=== PATIENT | female | born 1980 | race Caucasian/White ===

== ENCOUNTER 2017-07-20 16:26 | Emergency (ER) | payer OTHER ==
[~2017-07-20] VITALS: Ht 160 cm; Wt 121.1 kg
[~2017-07-20 16:26] MED LIST: LOPE1LIQ7 PO; NAPR220T70 PO
[2017-07-20] MEDS ORDERED: NAPR375T3 PO (16:53)
--- NOTE | 2017-07-20 16:54 | PHYS DOC ---
Past History Past Medical History: Other Past Surgical History: , Other Alcohol Use: None Drug Use: None Adult General Chief Complaint Chief Complaint: LOWER EXT PAIN HPI HPI Patient is a 57-year-old female who was standing for a long time yesterday and developed some a ankle swelling bilaterally. She was told by an EMS friend, to get checked out and make sure that she didn't have any vascular compromise. Patient has not complaints Review of Systems Review of Systems Constitutional: Denies fever or chills [] HENT: Denies nasal congestion or sore throat [] Respiratory: Denies cough or shortness of breath [] Cardiovascular: No chest pain GI: Denies abdominal pain, Musculoskeletal: Ankle pain bilateral and ankle swelling Integument: Denies rash or skin lesions [] Neurologic: Denies headache, focal weakness or sensory changes [] Allergies Allergies Allergies Coded Allergies Type Severity Reaction Last Updated Verified clindamycin Allergy Intermediate 09/16/14 Yes poison tricia extract Allergy Intermediate 09/16/14 Yes Latex, Natural Rubber Allergy Mild 09/16/14 Yes aspirin Allergy Mild 09/16/14 Yes cephalexin Allergy Mild 09/16/14 Yes coconut oil Allergy Mild 09/16/14 Yes venlafaxine Allergy Unknown 07/20/17 Yes Uncoded Allergies Type Severity Reaction Last Updated Verified narcotics Adverse Reaction Unknown 07/20/17 Physical Exam Physical Exam Constitutional: Well developed, well nourished, no acute distress, non-toxic appearance. [] HENT: Normocephalic, atraumatic, Eyes: EOMI, conjunctiva normal, no discharge. [] Neck: Normal range of motion, trachea midline, no JVD Cardiovascular:Heart rate regular rhythm, no murmur, normal perfusion, capillary refill less than 2 seconds Lungs & Thorax: Bilateral breath sounds clear to auscultation, no tachypnea Abdomen: No distention Skin: Warm, dry, no erythema, no rash. [] Back: Number range of motion Extremities: No tenderness, no cyanosis, no clubbing, ROM intact, no edema. No signs of DVT, no signs of septic joint, no signs of ischemia infection Neurologic: Alert and oriented X 3, normal motor function, no focal deficits noted. [] Psychologic: Affect normal, judgement normal, mood normal. [] EKG EKG [] Radiology/Procedures Radiology/Procedures [] Course & Med Decision Making Course & Med Decision Making Pertinent Labs and Imaging studies reviewed. (See chart for details) [] Dragon Disclaimer Dragon Disclaimer This chart was dictated in whole or in part using Voice Recognition software in a busy, high-work load, and often noisy Emergency Department environment. It may contain unintended and wholly unrecognized errors or omissions. Departure Departure: Impression: Primary Impression: Peripheral edema Additional Impression: Ankle pain Disposition: HOME, SELF-CARE Condition: STABLE Referrals: PCP,NO (PCP) Please follow-up with your PCP or one of the clinics for recheck and reevaluation if your symptoms persist past 3 days Patient Instructions: Cryotherapy, [id number], Peripheral Edema Additional Instructions: elevate your legs and rest them today, apply ice packs. Scripts Naproxen (NAPROXEN) 375 Mg Tablet 1 TAB PO TID for 5 Days, #15 TAB 5 Refills Prov: Jeanette RUTHERFORD MD 07/20/17 Problem Qualifiers Jeanette RUTHERFORD MD Jul 20, 2017 16:54
[2017-07-20 17:10] VITALS: BP 124/77
== END 2017-07-20 17:10 | disposition home or self-care (01) ==
LOC: ER 16:26
DX: R60.0 Localized edema (principal); M25.571 Pain in right ankle and joints of right foot; M25.572 Pain in left ankle and joints of left foot; Z88.6 Allergy status to analgesic agent; Z88.1 Allergy status to other antibiotic agents; Z91.040 Latex allergy status; Z88.5 Allergy status to narcotic agent; Z88.8 Allergy status to other drugs, medicaments and biological substances; Z91.048 Other nonmedicinal substance allergy status
CPT/HCPCS: 99282